=== PATIENT | male | born 1965 | race Caucasian/White ===

== ENCOUNTER 2020-05-03 13:44 | Outpatient (CLI) | payer OTHER, SELFPAY ==
--- NOTE | 2020-05-03 14:00 | XR_ITS ---
WS: [id number] Right ankle, 3 views, 05/03/2020 Clinical Data: pain in ankle Comparison: Right ankle, 03/12/2010. Findings: No new fractures or dislocations are seen. The ankle mortise is normal. There is an healed fracture o f the calcaneus with deformity which is not changed. The soft tissues are nonremarkable. XR/XR ankle RT min 3V* [id number] Impression: 1. Negative for new fracture. 2. Old healed crush fracture of the right calcaneus.
== END 2020-05-03 13:45 | disposition home or self-care (01) ==
LOC: RADWPI 13:46
PROVIDERS: Family Provider Family Medicine; PCP Family Medicine; Visit Provider Family Medicine
DX: M25.571 Pain in right ankle and joints of right foot (principal)
CPT/HCPCS: 73610

== ENCOUNTER 2020-05-09 15:13 | Outpatient (CLI) | payer OTHER, SELFPAY ==
--- NOTE | 2020-05-09 15:30 | CT_ITS ---
WS: [id number] CT LUMBAR SPINE TECHNIQUE: Noncontrast CT of the lumbar spine with coronal and sagittal reformatted images. CLINICAL INFORMATION: Low back pain COMPARISON: MRI DLP: 2015.[address] scans at [facility] use at least one of these dose optimization techniques: automat ed exposure control; mA and/or kV adjustment per patient size (includes targeted exams where dose is matched to clinical indication); or iterative reconstruction. FINDINGS: Mild lumbar curve. No acute compression. No high-grade central canal stenosis. L1-L2: Normal. L2-L3: Normal L3-4: Mild disc bulging with mild central canal stenosis. Narrowing of the subarticular recess bilate rally. Mild to moderate right and no significant left foraminal narrowing. Moderate facet arthropathy . L4-5: Mild annular bulging with slight effacement of ventral thecal sac. Small left foraminal protrus ion with moderate left foraminal narrowing. Right foramen is patent. Moderate facet arthropathy. L5-S1: Mild disc bulging with slight effacement of ventral thecal sac. Mild central canal stenosis wi th impingement traversing S1 nerve roots bilaterally. Mild to moderate facet arthropathy. Moderate le ft foraminal narrowing. Visualized pelvic bony structures: Normal. Paravertebral soft tissues: Normal. CT/CT lumbar spine wo con* [id number] IMPRESSION: 1. Mild lumbar curve. No acute compression. 2. Mild central canal stenosis L3-L4 L4-L5 and L5-S1. 3. Mild to moderate right L3-4 foraminal narrowing. 4. Moderate left L4-5 foraminal narrowing. 5. Central disc protrusion L5-S1 with impingement on the traversing S1 nerve r oots bilaterally. Moderate left L5-S1 foraminal narrowing.
--- NOTE | 2020-05-09 15:45 | CT_ITS ---
WS: [id number] CT CERVICAL SPINE TECHNIQUE: Noncontrast CT of the cervical spine with coronal and sagittal reformatted images. CLINICAL INFORMATION: Neck pain COMPARISON: MRI cervical 12/29 DLP: 1296.[address] scans at [facility] use at least one of these dose optimization techniques: automat ed exposure control; mA and/or kV adjustment per patient size (includes targeted exams where dose is matched to clinical indication); or iterative reconstruction. FINDINGS: Exaggeration the normal cervical lordosis. Normal C1-2 articulation. C2-C3: Normal. C3-C4: Mild disc osteophyte complex. Slight effacement of ventral thecal sac. Mild left and no signif icant right foraminal narrowing. Mild facet arthropathy. C4-C5: Disc osteophyte complex with mild central canal stenosis. Slight contact of the cervical cord. Moderate right and mild left foraminal narrowing. Moderate facet arthropathy. C5-C6: Mild disc bulging and osteophytic ridging. Moderate to severe bilateral bony foraminal narrowi ng. Mild central canal stenosis. Moderate facet arthropathy. C6-C7: Mild disc osteophyte complex with endplate ridging. Mild bilateral foraminal narrowing. Modera te facet arthropathy. C7-T1: No significant disc bulging. Spinal canal and foramen are patent. Visualized posterior nasopharynx: Normal. Prevertebral soft tissues: Normal. CT/CT cervical spin wo con* [id number] IMPRESSION: 1. Exaggeration of the normal cervical lordosis. No high-grade central canal n arrowing. 2. Mild central canal stenosis C4-C5 and C5-C6. 3. Multilevel moderate to severe bony foraminal narrowing worse at right C4-C5 and bilateral C5-C6
== END 2020-05-09 15:14 | disposition home or self-care (01) ==
LOC: RADWPI 15:16
PROVIDERS: Family Provider Family Medicine; PCP Family Medicine; Visit Provider Licensed Practical Nurse
DX: M40.40 Postural lordosis, site unspecified (principal); M48.02 Spinal stenosis, cervical region; M48.061 Spinal stenosis, lumbar region without neurogenic claudication; M51.26 Other intervertebral disc displacement, lumbar region
CPT/HCPCS: 72125; 72131

== ENCOUNTER → 2020-05-28 15:02 | Outpatient (BNVA) | payer OTHER, SELFPAY | PROVIDERS: Family Provider Family Medicine; PCP Family Medicine; Visit Provider Licensed Practical Nurse | DX: M51.06 Intervertebral disc disorders with myelopathy, lumbar region (principal); M50.00 Cervical disc disorder with myelopathy, unspecified cervical region | CPT/HCPCS: 99213 ==

== ENCOUNTER → 2021-02-14 11:31 | Outpatient (BNVA) | payer OTHER, SELFPAY | PROVIDERS: Family Provider Family Medicine; PCP Family Medicine; Visit Provider Family Medicine | DX: Z00.00 Encounter for general adult medical examination without abnormal findings (principal); D50.9 Iron deficiency anemia, unspecified; E03.9 Hypothyroidism, unspecified; F32.9 Major depressive disorder, single episode, unspecified; F41.9 Anxiety disorder, unspecified; M50.00 Cervical disc disorder with myelopathy, unspecified cervical region; M51.06 Intervertebral disc disorders with myelopathy, lumbar region; N28.9 Disorder of kidney and ureter, unspecified; D50.8 Other iron deficiency anemias | CPT/HCPCS: 80053; 84439; 84443; 85025 ==

== ENCOUNTER → 2022-05-13 15:02 | Outpatient (BNVA) | payer OTHER, SELFPAY | PROVIDERS: Family Provider Family Medicine; PCP Family Medicine; Visit Provider Podiatrist Foot & Ankle Surgery | DX: M79.671 Pain in right foot (principal) | CPT/HCPCS: 73630 ==

== ENCOUNTER → 2023-02-09 09:25 | Outpatient (BNVA) | payer OTHER, SELFPAY | PROVIDERS: Family Provider Family Medicine; PCP Family Medicine; Visit Provider Family Medicine | DX: N28.9 Disorder of kidney and ureter, unspecified (principal) | CPT/HCPCS: 80048 ==

== ENCOUNTER → 2025-01-09 11:48 | Outpatient (BNVA) | payer OTHER, SELFPAY | PROVIDERS: Family Provider Family Medicine; PCP Family Medicine; Visit Provider Family Medicine | DX: N28.9 Disorder of kidney and ureter, unspecified (principal) | CPT/HCPCS: 80048 ==